=== PATIENT | female | born 1975 | race African-American/Black ===

== ENCOUNTER 2025-01-14 15:05 | Emergency (ER) | payer MEDICAID ==
[~2025-01-14] VITALS: Ht 154.9 cm; Wt 75.0 kg
[2025-01-14 15:11] VITALS: BP 109/76; PULSE 91; RESP 14; TEMP 98.1; O2SAT 100
[2025-01-14] MEDS ORDERED: RISP3TAB MT (15:40)
== END 2025-01-14 22:53 | disposition left against medical advice (07) ==
LOC: ER 15:05
DX: F20.9 Schizophrenia, unspecified (principal); Z76.0 Encounter for issue of repeat prescription; Z79.899 Other long term (current) drug therapy
CPT/HCPCS: 99283